=== PATIENT | male | born 1960 | race Caucasian/White ===

== ENCOUNTER → 2017-04-12 | Outpatient (REF) | payer OTHER ==
[2017-04-12 14:59] LABS: PHOSPHORUS LEVEL 3.2 MG/DL (2.5-4.9)
== END ==
LOC: M LAB REF 13:16
PROVIDERS: ATTEND Internal Medicine
DX: N18.3 Chronic kidney disease, stage 3 (moderate) (principal)

== ENCOUNTER → 2020-02-02 | Outpatient (REF) | payer OTHER | LOC: M LAB REF 12:44 | PROVIDERS: ATTEND Internal Medicine | DX: M19.90 Unspecified osteoarthritis, unspecified site (principal); J30.9 Allergic rhinitis, unspecified ==

== ENCOUNTER → 2021-05-18 | Outpatient (REF) | payer OTHER | LOC: M LAB REF 16:38 | PROVIDERS: ATTEND Internal Medicine | DX: M25.50 Pain in unspecified joint (principal) ==

== ENCOUNTER → 2022-01-27 | Outpatient (REF) | payer BC, OTHER ==
[2022-01-28 04:08] LABS: LDL DIRECT 88 mg/dL (0-99)
== END ==
LOC: M LAB REF 12:18
PROVIDERS: ATTEND Internal Medicine
DX: E78.00 Pure hypercholesterolemia, unspecified (principal)

== ENCOUNTER → 2022-02-03 | Outpatient (CLI) | payer BC, OTHER | LOC: M WUC 14:16 | PROVIDERS: ATTEND Internal Medicine | DX: M25.78 Osteophyte, vertebrae (principal); M50.31 Other cervical disc degeneration, high cervical region; M47.9 Spondylosis, unspecified ==

== ENCOUNTER → 2022-03-30 | Outpatient (REF) | payer BC, OTHER ==
[2022-04-01 08:09] LABS: LDL DIRECT 66 mg/dL (0-99)
== END ==
LOC: M LAB REF 16:14
PROVIDERS: ATTEND Internal Medicine
DX: E78.00 Pure hypercholesterolemia, unspecified (principal)

== ENCOUNTER → 2024-04-15 | Outpatient (CLI) | payer BC | LOC: M PLAIMG 07:20 | PROVIDERS: ATTEND Internal Medicine | DX: R01.1 Cardiac murmur, unspecified (principal) ==

== ENCOUNTER → 2025-07-14 | Outpatient (REF) | payer BC, MEDICARE | LOC: M LAB REF 12:04 | PROVIDERS: ATTEND Internal Medicine | DX: M19.90 Unspecified osteoarthritis, unspecified site (principal) ==